=== PATIENT | male | born 1965 | race African-American/Black ===

== ENCOUNTER 2021-06-12 21:52 | Emergency (ER) | payer MEDICAID ==
[~2021-06-12] VITALS: Ht 175.3 cm; Wt 90.0 kg
[2021-06-13] MEDS ORDERED: KETOROLAC 30MG/ML VIAL IV STA (01:29)
[2021-06-13 02:24] LABS: BASOPHILS % 0.7 % (0.0-2.0); EOSINOPHILS % 1.9 % (0.0-5.0); HEMOGLOBIN. 14.2 g/dL (14.0-18.0); MEAN CORPUSCULAR HEMOGLOBIN 29.4 pg (28.0-32.0); MEAN CORPUSCULAR VOLUME 88.9 fL (80.0-94.0); MEAN PLATELET VOLUME 9.8 fl (7.4-10.4); NEUTROPHILS % 67.4 % (40.0-76.0); PLATELET 229 x1000/uL (130-400); RED BLOOD CELL COUNT 4.83 mill/uL (4.7-6.1)
[2021-06-13 02:32] LABS: CHLORIDE 105 mEq/L (98-107)
[2021-06-13 02:35] LABS: PARTIAL THROMBOPLASTIN TIME 24.6 sec (23.4-31.0); PROTHROMBIN TIME 10.3 sec (9.6-11.0)
[2021-06-13 02:41] LABS: BETA HYDROXYBUTYRATE 0.2 mMol/L (0.0-0.3)
[2021-06-13 03:07] LABS: CLARITY URINE CLEAR (CLEAR); COLOR URINE YELLOW (YELLOW); KETONES URINE NEGATIVE (NEGATIVE); LEUKOCYTE ESTERASE URINE NEGATIVE (NEGATIVE); NITRITE URINE NEGATIVE (NEGATIVE); OCCULT BLOOD URINE 1+ (NEGATIVE); PROTEIN URINE 2+ (NEGATIVE); SPECIFIC GRAVITY URINE 1.026 (1.005-1.030)
[2021-06-13] MEDS ORDERED: IBUP-2029 MT (05:16)
[2021-06-13 05:52] VITALS: BP 143/97
[2021-06-13] MEDS ORDERED: IOHEXOL-300 100 ML BOTTLE ONE (06:05)
== END 2021-06-13 06:00 | disposition home or self-care (01) ==
LOC: ER 22:00
DX: M51.44 Schmorl's nodes, thoracic region (principal); S00.83XA Contusion of other part of head, initial encounter; M25.572 Pain in left ankle and joints of left foot; I10 Essential (primary) hypertension; E11.9 Type 2 diabetes mellitus without complications; V03.90XA Pedestrian on foot injured in collision with car, pick-up truck or van, unspecified whether traffic or nontraffic accident, initial encounter; Y93.89 Activity, other specified; Y92.488 Other paved roadways as the place of occurrence of the external cause; Z79.01 Long term (current) use of anticoagulants
CPT/HCPCS: 36415; 70450; 71045; 71260; 72125; 80053; 81003; 82010; 82962; 83690; 85025; 85610; 85730; 86850; 86900; 86901; 96374; 99285; J1885; Q9967